=== PATIENT | female | born 1990 | race African-American/Black ===

== ENCOUNTER 2020-10-13 17:27 | Emergency (ER) | payer OTHER ==
[~2020-10-13] VITALS: Ht 162.6 cm; Wt 60.0 kg
[~2020-10-13 17:27] MED LIST: AMOXICILLIN/CL875 MG PO; AMOXICILLIN500 MG OR; AMOXICILLIN500 MG PO; AURALGAN15 ML/BTL AU; CIPRO500 MG OR; CORTISPORIN OTI10 ML AD; DIFLUCAN150 MG PO; FERROUS SULF324 MG OR; FLAGYL500 MG PO; FLONASE NASAL50 MCG; IRON; IRON325 MG OR; NO HOMEMEDS; PYRIDIUM200 MG OR; ROBITUSSIN AC10 ML OR; TAM75CAP PO; ULTRAM50 M1 OR; ULTRAM50 M1 PO
[2020-10-13 18:07] LABS: HEMATOCRIT 33.4 % (37.0-47.0); HEMOGLOBIN 10.8 g/dl (12.0-16.0); IMMATURE GRANULOCYTES 0.1 % (0.0-5.0); MEAN CORPUSCULAR HGB 28.2 pG CALC (26.0-32.0); MEAN CORPUSCULAR HGB CONC 32.3 g/dL CAL (32.0-36.0); NEUT# 3.99 thou/uL (2.00-7.15); RED BLOOD COUNT 3.83 mill/uL (4.20-5.60); RED CELL DISTRI WIDTH 15.1 % (11.5-15.5)
[2020-10-13 18:19] LABS: MEAN CELL VOLUME 87.2 fL CALC (80.0-100.0)
[2020-10-13 18:34] LABS: ALBUMIN 3.9 g/dL (3.2-5.0); ALKALINE PHOSPHATASE 50 u/l (38-126); ANION GAP 11 (6-22 (CALC)); BILIRUBIN, TOTAL 0.2 mg/dL (0.0-1.4); BUN 8 mg/dL (7-17); BUN/CREATININE RATIO 13 (12-20 (CALC)); CARBON DIOXIDE 25 mmol/l (22-30); CHLORIDE 107 mmol/l (95-108); CREATININE 0.7 mg/dL (0.5-1.0); GFR > 60 ML/MIN (>=60 (CALC)); GFR FOR AFR.AMER. > 60 ML/MIN (>=60 (CALC)); POTASSIUM 3.7 mmol/l (3.5-5.1); SGOT/AST 16 u/l (14-36); SODIUM 139 mmol/l (137-146); TOTAL PROTEIN 6.9 g/dL (6.3-8.2)
[2020-10-13] MEDS ORDERED: NAPROXEN DR500 MG PO (18:54)
[2020-10-13 19:00] VITALS: BP 118/60
== END 2020-10-13 19:00 | disposition home or self-care (01) ==
LOC: ED 17:27
DX: M62.838 Other muscle spasm (principal); M54.31 Sciatica, right side; F17.200 Nicotine dependence, unspecified, uncomplicated

== ENCOUNTER 2021-02-19 | Emergency (ER) | payer OTHER ==
[~2021-02-19] MED LIST changes: +NAPROXEN DR500 MG PO
[2021-02-19] MEDS ORDERED: IBUPROFEN PO (20:28)
[2021-02-19] MEDS ORDERED: AMOXICILLIN875 MG PO (20:38)
== END 2021-02-19 21:24 | disposition home or self-care (01) ==
DX: J02.9 Acute pharyngitis, unspecified (principal); F17.200 Nicotine dependence, unspecified, uncomplicated; Z20.822 Contact with and (suspected) exposure to COVID-19